=== PATIENT | female | born 1995 | race African-American/Black ===

== ENCOUNTER 2019-09-12 14:42 | Emergency (ER) | payer OTHER ==
[~2019-09-12] VITALS: Ht 167.6 cm; Wt 121.6 kg
[2019-09-12] MEDS ORDERED: ALBUTEROL/IPRATROPIUM 3 ML NEB NEB ONE (15:00)
--- NOTE | 2019-09-12 15:01 | NUR ---
RT CALLED FOR HUBER JULES.
--- NOTE | 2019-09-12 15:58 | Diagnostic Imaging Report ---
EXAMINATION: CHEST 2 VIEWS INDICATION: Shortness of breath COMPARISON: None FINDINGS: LINES/TUBES:None LUNGS:The lung volumes are low. No focal consolidation or pulmonary edema. PLEURA:No pleural effusion or pneumothorax. MEDIASTINUM:The cardiomediastinal silhouette appears normal in size and shape. BONES/SOFT TISSUES:No acute osseous injury. ABDOMEN:No free air under the diaphragm. IMPRESSION: Low lung volumes. No focal pneumonia or pulmonary edema. Signed by: Adeola Van MD on 09/12/2019 3:55 PM
== END 2019-09-12 18:08 | disposition left against medical advice (07) ==
LOC: ER 14:42
DX: R06.2 Wheezing (principal)
CPT/HCPCS: 71046; 94640

== ENCOUNTER 2022-10-30 02:05 | Emergency (ER) | payer OTHER ==
[~2022-10-30] VITALS: Ht 167.6 cm; Wt 121.6 kg
[2022-10-30] MEDS ORDERED: LEVETIRACETAM 500 MG TAB PO STA (02:17)
[2022-10-30] MEDS ORDERED: KEPPRA500 MG PO (02:25)
[2022-10-30] MEDS ORDERED: LEVETIRACETAM 500 MG TAB ONE (02:33)
== END 2022-10-30 04:03 | disposition home or self-care (01) ==
LOC: ER 02:10
DX: S01.01XA Laceration without foreign body of scalp, initial encounter (principal); G40.909 Epilepsy, unspecified, not intractable, without status epilepticus; W06.XXXA Fall from bed, initial encounter; Y92.092 Bedroom in other non-institutional residence as the place of occurrence of the external cause; J45.909 Unspecified asthma, uncomplicated; F90.9 Attention-deficit hyperactivity disorder, unspecified type
CPT/HCPCS: 70450; 99283

== ENCOUNTER 2022-11-06 16:38 | Emergency (ER) | payer OTHER ==
[~2022-11-06] VITALS: Ht 167.6 cm; Wt 121.6 kg
[~2022-11-06 16:38] MED LIST: KEPPRA500 MG PO
== END 2022-11-06 17:23 | disposition home or self-care (01) ==
LOC: ER 16:44
DX: Z48.02 Encounter for removal of sutures (principal)
CPT/HCPCS: 99282